=== PATIENT | male | born 1985 | race Caucasian/White ===

== ENCOUNTER 2020-04-12 19:05 | Emergency (ER) | payer BC, OTHER ==
--- NOTE | 2020-04-12 19:41 | RAD ---
RIGHT TIBIA AND FIBULA: 04/12/20 HISTORY: Kicked by a horse. There is a transversely oriented essentially nondisplaced distal fibular shaft fracture. No associat ed tibial fracture. IMPRESSION: Nondisplaced distal fibular fracture. POS: [facility]
[2020-04-12] MEDS ORDERED: Morphine 4 MG/ML VIAL ONE (20:11)
[2020-04-12] MEDS ORDERED: Ondansetron PF 4 MG/2 ML Vial ONE (20:11)
[2020-04-12] MEDS ORDERED: Boostrix 0.5 ML VIAL ONE (20:42)
[2020-04-12] MEDS ORDERED: HYDROcodone/Acetaminophen 5/325 mg Tablet ONE (22:16)
== END 2020-04-12 22:20 | disposition home or self-care (01) ==
LOC: ERS 19:05
DX: S82.831A Other fracture of upper and lower end of right fibula, initial encounter for closed fracture (principal); Z23 Encounter for immunization; W55.12XA Struck by horse, initial encounter
CPT/HCPCS: 27781; 90471; 90715; 96365; 96375; J0690; J2270; J2405

== ENCOUNTER 2020-12-15 19:55 | Inpatient (IN) | payer BC ==
[2020-12-15] MEDS ORDERED: Ketorolac Tromethamine 30 MG/ML VIAL ONE ×2 (21:12→21:15)
[2020-12-15] MEDS ORDERED: Cefepime 2 GM VIAL ONE (21:12)
[2020-12-15] MEDS ORDERED: Acetaminophen 500 MG TAB ONE (21:12)
[2020-12-15 21:20] LABS: #Lymphocytes 1.2 thou/uL (1.20-3.40); #Neutrophils 10.8 thou/uL (1.40-6.50); %Basophils 0.1 % (0.0-1.0); %Eosinophils 0.2 % (0.0-10.0); %Lymphocytes 9.3 % (21.0-51.0); %Monocytes 7.9 % (0.0-10.0); %Neutrophils 82.5 % (42.0-75.0); Hemoglobin 14.6 g/dL (14.0-18.0); Mean Corpuscular HGB CONC 34.2 g/dL (32.0-36.0); Mean Corpuscular Hemoglobin 30.8 pg (27.0-31.0); Mean Platelet Volume 8.1 fL (7.4-10.4); Platelet Count 214 thou/uL (130-400); RBC Distribution Width 12.2 % (11.5-14.5); Red Blood Cell (RBC) Count 4.74 mill/uL (4.70-6.10); White Blood Cell (WBC) Count 13.1 thou/uL (4.8-10.8)
[2020-12-15 21:42] LABS: ALT (SGPT) 23 U/L (8-55); AST (SGOT) 19 U/L (5-34); Albumin 4.6 g/dL (3.5-5.0); Alkaline Phosphatase 65 U/L (40-110); Anion Gap 12 mmol/L (10-20); BUN (Urea Nitrogen) 13 mg/dL (8.9-20.6); Bilirubin, Total 0.4 mg/dL (0.2-1.2); CK (CPK) 76 U/L (30-200); CRP (Inflammatory) 7.61 mg/dL (= or < 0.5); Calc. Creatinine Clearance 0 mL/min (70-130); Calcium 9.6 mg/dL (7.8-10.44); Carbon Dioxide 28 mmol/L (22-29); Chloride 100 mmol/L (98-107); Globulin 2.7 g/dL (2.4-3.5); Glucose 119 mg/dL (70-105); Potassium 4.1 mmol/L (3.5-5.1); Protein, Total 7.3 g/dL (6.0-8.3); Sodium 136 mmol/L (136-145)
[2020-12-15] MEDS ORDERED: Vancomycin 1 GM/200 ML BAG ONE (22:08)
[2020-12-15] MEDS ORDERED: Acetaminophen 325 MG TAB PO PRN (23:04)
[2020-12-15] MEDS ORDERED: Ibuprofen 600 MG TAB PO PRN (23:06)
[2020-12-15] MEDS ORDERED: Morphine 2 MG/ML VIAL SLOW IVP PRN (23:07)
[2020-12-15] MEDS ORDERED: Ondansetron ODT 4 MG TAB PO PRN (23:09)
[2020-12-15] MEDS ORDERED: Lactated Ringer's 1,000 ML IV SCH (23:15)
[2020-12-16 00:25] VITALS: BMI 24.2
[2020-12-16] MEDS: Clindamycin/D5W 600 MG in Premix Bag 1 BAG IVPB SCH ×3 (01:20→15:18)
[2020-12-16] MEDS: Lactated Ringer's 1,000 ML IV SCH ×3 (01:21→17:34)
[2020-12-16 03:11] LABS: SARS-CoV-2 NAA Rapid Test Not Detected (NotDetected)
[2020-12-16] MEDS: Cefepime 2 GM in Sodium Chloride 0.9% 100 ML IVPB SCH ×3 (05:12→22:10)
[2020-12-16 05:48] LABS: #Eosinphils 0.1 thou/uL (0.0-0.7); #Lymphocytes 1.5 thou/uL (1.20-3.40); #Monocytes 0.9 thou/uL (0.11-0.59); #Neutrophils 8.2 thou/uL (1.40-6.50); %Basophils 0.3 % (0.0-1.0); %Eosinophils 0.6 % (0.0-10.0); %Lymphocytes 14.1 % (21.0-51.0); %Monocytes 8.5 % (0.0-10.0); %Neutrophils 76.5 % (42.0-75.0); Hemoglobin 13.5 g/dL (14.0-18.0); Mean Corpuscular HGB CONC 33.7 g/dL (32.0-36.0); Mean Corpuscular Hemoglobin 30.5 pg (27.0-31.0); Mean Corpuscular Volume 90.3 fL (78.0-98.0); Mean Platelet Volume 8.2 fL (7.4-10.4); Platelet Count 188 thou/uL (130-400); RBC Distribution Width 12.1 % (11.5-14.5); Red Blood Cell (RBC) Count 4.42 mill/uL (4.70-6.10); White Blood Cell (WBC) Count 10.7 thou/uL (4.8-10.8)
[2020-12-16 06:05] LABS: Anion Gap 9 mmol/L (10-20); BUN (Urea Nitrogen) 13 mg/dL (8.9-20.6); Calc. Creatinine Clearance 144 mL/min (70-130); Carbon Dioxide 30 mmol/L (22-29); Chloride 103 mmol/L (98-107); Glucose 114 mg/dL (70-105); Potassium 4.4 mmol/L (3.5-5.1); Sodium 138 mmol/L (136-145)
[2020-12-16] MEDS ORDERED: DESVENLAFAXINE SUCCINATE 50 MG PO SCH (09:00)
[2020-12-16] MEDS ORDERED: Venlafaxine HCl XR 75 MG CAP PO SCH (09:00)
[2020-12-16] MEDS ORDERED: Bacitracin Zinc Ointment 30 gm TUBE ONE (18:23)
[2020-12-16] MEDS ORDERED: Neomycin-Polymyxin 1 ML AMP ONE (18:23)
[2020-12-16] MEDS ORDERED: Bupivacaine PF 0.5% 30 ML VIAL ONE (18:23)
[2020-12-16] MEDS ORDERED: Thrombin 5000 UNITS/5 ML VIAL ONE (18:23)
[2020-12-16] MEDS ORDERED: Fentanyl 100 MCG/2 ML VIAL ONE ×2 (18:25→20:56)
[2020-12-16] MEDS ORDERED: Dexamethasone 20 MG/5 ML VIAL ONE (19:03)
[2020-12-16] MEDS ORDERED: Ondansetron PF 4 MG/2 ML Vial ONE (19:03)
[2020-12-16] MEDS ORDERED: Ketorolac Tromethamine 30 MG/ML VIAL ONE (19:03)
[2020-12-16] MEDS ORDERED: PROPOFOL 200 MG/20 ML VIAL ONE (19:03)
[2020-12-16] MEDS ORDERED: Lidocaine 1% PF 5 ML VIAL ONE (19:03)
[2020-12-16] MEDS ORDERED: Morphine Sulfate 2 MG/ML SYRINGE SLOW IVP PRN (19:39)
[2020-12-16] MEDS ORDERED: PACU-Morphine 4MG/ML VIAL SLOW IVP PRN (19:39)
[2020-12-16] MEDS ORDERED: HYDROmorphone 2 MG/ML VIAL SLOW IVP PRN (19:39)
[2020-12-16] MEDS ORDERED: Ketorolac Tromethamine 30 MG/ML VIAL IVP PRN (19:39)
[2020-12-16] MEDS ORDERED: Meperidine HCl/PF 25 MG/ML VIAL SLOW IVP PRN (19:39)
[2020-12-16] MEDS ORDERED: Ondansetron HCl/PF 4 MG/2 ML Vial IVP PRN (19:39)
[2020-12-16] MEDS ORDERED: Promethazine HCl 25 MG/ML VIAL SLOW IVP PRN (19:39)
[2020-12-16] MEDS ORDERED: Promethazine HCl 25 MG/ML VIAL IM PRN ×2 (19:39→21:42)
[2020-12-16] MEDS ORDERED: Morphine 4 MG/ML VIAL SLOW IVP PRN (21:40)
[2020-12-16] MEDS ORDERED: Meperidine HCl/PF 25 MG/ML VIAL IM PRN (21:41)
[2020-12-16] MEDS ORDERED: HYDROcodone/Acetaminophen 7.5/325 mg Tablet PO PRN (21:43)
[2020-12-16] MEDS ORDERED: Ketorolac Tromethamine 30 MG/ML VIAL IVP SCH (23:59)
[2020-12-17] MEDS: Clindamycin/D5W 600 MG in Premix Bag 1 BAG IVPB SCH ×3 (00:56→16:18)
[2020-12-17] MEDS: Lactated Ringer's 1,000 ML IV SCH ×2 (01:00→10:38)
[2020-12-17] MEDS: Ketorolac Tromethamine 30 MG/ML VIAL IVP SCH ×4 (03:51→20:51)
[2020-12-17] MEDS: Cefepime 2 GM in Sodium Chloride 0.9% 100 ML IVPB SCH ×3 (05:54→20:50)
[2020-12-17] MEDS: DESVENLAFAXINE 50 MG PO SCH (08:27)
[2020-12-18] MEDS: Clindamycin/D5W 600 MG in Premix Bag 1 BAG IVPB SCH ×4 (00:18→23:58)
[2020-12-18] MEDS: Ketorolac Tromethamine 30 MG/ML VIAL IVP SCH ×4 (04:14→20:11)
[2020-12-18] MEDS: Cefepime 2 GM in Sodium Chloride 0.9% 100 ML IVPB SCH ×3 (04:16→20:08)
[2020-12-18] MEDS: DESVENLAFAXINE 50 MG PO SCH (08:50)
[2020-12-18 13:13] LABS: Bartonella henselae IgG Negative titer (Neg:<1:320); Bartonella henselae IgM Negative titer (Neg:<1:100); Bartonella quintana IgG Negative titer (Neg:<1:320); Bartonella quintana IgM Negative titer (Neg:<1:100)
[2020-12-19] MEDS: Ketorolac Tromethamine 30 MG/ML VIAL IVP SCH ×3 (04:13→15:27)
[2020-12-19] MEDS: Cefepime 2 GM in Sodium Chloride 0.9% 100 ML IVPB SCH ×2 (04:14→13:28)
[2020-12-19] MEDS: Clindamycin/D5W 600 MG in Premix Bag 1 BAG IVPB SCH ×2 (08:00→15:50)
[2020-12-19] MEDS: DESVENLAFAXINE 50 MG PO SCH (09:00)
[2020-12-19] MEDS ORDERED: Bupivacaine PF 0.5% 30 ML VIAL ONE (15:22)
[2020-12-19] MEDS ORDERED: Thrombin 5000 UNITS/5 ML VIAL ONE (15:23)
[2020-12-19] MEDS ORDERED: Bacitracin Zinc Ointment 30 gm TUBE ONE (15:23)
[2020-12-19] MEDS ORDERED: Sodium Chloride 0.9% 40 ML ONE (15:23)
[2020-12-19] MEDS ORDERED: Fentanyl 100 MCG/2 ML VIAL ONE (15:25)
[2020-12-19] MEDS ORDERED: Sodium Chloride 0.9% 10 ML ONE (15:29)
[2020-12-19] MEDS ORDERED: Clindamycin/D5W 600 mg/50 ml Premix Bag ONE (15:42)
[2020-12-19] MEDS ORDERED: Ketorolac Tromethamine 30 MG/ML VIAL ONE ×2 (15:42→17:42)
[2020-12-19] MEDS ORDERED: Midazolam HCl 2 mg/2 ml Vial ONE (15:54)
[2020-12-19] MEDS ORDERED: Lidocaine 1% PF 5 ML VIAL ONE (15:57)
[2020-12-19] MEDS ORDERED: PROPOFOL 200 MG/20 ML VIAL ONE (15:57)
[2020-12-19] MEDS ORDERED: Ondansetron PF 4 MG/2 ML Vial ONE (15:57)
[2020-12-19] MEDS ORDERED: Dexamethasone 20 MG/5 ML VIAL ONE (15:57)
[2020-12-19] MEDS ORDERED: ePHEDrine Sulfate 50 MG/10 ML VIAL ONE (15:57)
[2020-12-19] MEDS ORDERED: Promethazine HCl 25 MG/ML VIAL SLOW IVP PRN (17:05)
[2020-12-19] MEDS ORDERED: Promethazine HCl 25 MG/ML VIAL IM PRN (17:05)
[2020-12-19] MEDS ORDERED: Morphine Sulfate 2 MG/ML SYRINGE SLOW IVP PRN (17:05)
[2020-12-19] MEDS ORDERED: Ondansetron HCl/PF 4 MG/2 ML Vial IVP PRN (17:05)
[2020-12-19 18:08] VITALS: BP 149/91; TEMP 97.7
== END 2020-12-19 19:30 | disposition home or self-care (01) | DRG 854 ==
LOC: ERS 19:55 → T4-A 21:55
PROVIDERS: ADMIT Family Medicine; ATTEND Family Medicine
PROC: 0J9H0ZZ Drainage of Left Lower Arm Subcutaneous Tissue and Fascia, Open Approach (ICD-10-PCS; principal; 2020-12-17)
PROC: 0LB50ZZ Excision of Right Lower Arm and Wrist Tendon, Open Approach (ICD-10-PCS; 2020-12-17)
PROC: 01Q50ZZ Repair Median Nerve, Open Approach (ICD-10-PCS; 2020-12-17)
PROC: 01Q40ZZ Repair Ulnar Nerve, Open Approach (ICD-10-PCS; 2020-12-17)
DX: A41.9 Sepsis, unspecified organism (principal); L03.114 Cellulitis of left upper limb; L03.113 Cellulitis of right upper limb; L02.414 Cutaneous abscess of left upper limb; L02.413 Cutaneous abscess of right upper limb; S51.852A Open bite of left forearm, initial encounter; S51.851A Open bite of right forearm, initial encounter; F31.9 Bipolar disorder, unspecified; M65.831 Other synovitis and tenosynovitis, right forearm; F17.200 Nicotine dependence, unspecified, uncomplicated; Z20.822 Contact with and (suspected) exposure to COVID-19; W55.01XA Bitten by cat, initial encounter
CPT/HCPCS: 36415; 76999; 80048; 80053; 82550; 83605; 83735; 85025; 86140; 86611; 87040; 87070; 87077; 87186; 87205; 88304; 93005; 96365; 96367; 96375; J0692; J1100; J1885; J2250; J2270; J2405; J2704; J3010; J3370; J3490; S0020; U0002; U0005